=== PATIENT | male | born 1995 | race Caucasian/White ===

== ENCOUNTER 2020-09-09 12:17 | Emergency (ER) | payer OTHER ==
[~2020-09-09] VITALS: Ht 188 cm; Wt 161.0 kg
[2020-09-09 12:49] LABS: URINE BLOOD NEGATIVE (Negative); URINE CLARITY CLEAR; URINE COLOR YELLOW; URINE GLUCOSE-RANDOM* NEGATIVE (Negative); URINE KETONES 2+ (Negative); URINE LEUKOCYTES-REFLEX NEGATIVE (Negative); URINE NITRITE-REFLEX NEGATIVE (Negative); URINE PROTEIN (DIPSTICK) NEGATIVE (Negative); URINE UROBILINOGEN 0.2 E.U./dl (0.2-1.0)
[2020-09-09 12:51] LABS: ICTOTEST (BILI CONFIRMATORY) Negative (Negative); URINE BILIRUBIN NEGATIVE (Negative)
[2020-09-09 12:57] LABS: ABSOLUTE NEUTROPHILS 4.7 thou/uL (1.4-8.2); BASOPHILS 1.1 % (0.0-2.0); EOSINOPHILS 4.3 % (0.0-3.0); HEMATOCRIT 46.7 % (42.0-52.0); HEMOGLOBIN 16.1 gm/dL (14.0-18.0); MCH 30.7 pg (26.0-34.0); MCHC 34.5 g/dL (28.0-37.0); MCV 89.1 fL (80.0-100.0); MONOCYTES 3.7 % (1.0-8.0); POLYS 71.9 % (36.0-66.0); RBC 5.24 mil/uL (4.50-6.00); RDW 14.8 % (10.5-14.5); WBC 6.5 thou/uL (4.0-11.0)
[2020-09-09 13:27] LABS: PLATELET COUNT 146 thou/uL (150-400)
[2020-09-09 13:28] LABS: CALCIUM 9.6 mg/dL (8.5-10.1); POTASSIUM 3.7 mmol/L (3.5-5.1); TOTAL BILIRUBIN 0.7 mg/dL (0.2-1.0)
[2020-09-09 13:42] LABS: TOTAL PROTEIN 7.8 g/dL (6.4-8.2)
[2020-09-09] MEDS ORDERED: ZOFRAN ODT4 MG PO (16:37)
[2020-09-09] MEDS ORDERED: MECLIZINE HCL25 MG PO (16:37)
--- NOTE | 2020-09-09 16:40 | EKG ---
[address] [address] ELECTROCARDIOGRAM REPORT Name: COLLEEN BATEMAN Room #: [facility]ITAL[facility] [id number] Admission: 09/09/20 Attend Phys: Discharge: Date of : [birth year] Report #: [id number] [facility] ED Test Date: 2020-09-09 Test Time: 14:32:40 Pat Name: COLLEEN BATEMAN Department: Room: Gender: M Oxyacetylene Torch Operator: KK : 1995 Requested By: Yuki Stern Order Number: [id number] MD: Phong Parekh Measurements Intervals [place] Rate: 47 P: 12 MS: 126 QRS: 25 QRSD: 113 T: 21 QT: 438 QTc: 388 Interpretive Statements Sinus bradycardia Borderline intraventricular conduction delay No previous ECG available for comparison Electronically Signed On 09-09-2020 16:39:52 CDT by Phong Parekh [email or web address] <ELECTRONICALLY SIGNED> By: Phong Parekh MD, [facility] 09/09/20 1639 1432 1432 Phong Parekh MD, FACC /EPI
[2020-09-09 16:49] VITALS: BP 118/63
== END 2020-09-09 16:51 | disposition home or self-care (01) ==
LOC: ER 12:17
PROVIDERS: Nurse Practitioner Family
DX: E86.0 Dehydration (principal); Z20.822 Contact with and (suspected) exposure to COVID-19; R11.2 Nausea with vomiting, unspecified; R42 Dizziness and giddiness; Z90.49 Acquired absence of other specified parts of digestive tract